=== PATIENT | female | born 1980 | race Caucasian/White ===

== ENCOUNTER 2021-09-10 13:09 | Emergency (ER) | payer SELFPAY ==
[~2021-09-10] VITALS: Ht 170.2 cm; Wt 82.0 kg
[2021-09-10] MEDS ORDERED: SODIUM CHLORIDE 0.9% 1,000 ML IV ONE (13:30)
[2021-09-10 13:47] LABS: BASOPHILS % 0.5 % (0.0-2.0); EOSINOPHILS % 0.8 % (0.0-5.0); HEMOGLOBIN. 9.3 g/dL (12.0-16.0); LYMPHOCYTES % 19.9 % (20.0-50.0); MEAN CORPUSCULAR VOLUME 57.9 fL (81.0-99.0); MONOCYTES % 11.4 % (2.0-8.0); NEUTROPHILS % 67.4 % (40.0-76.0); RED BLOOD CELL COUNT 5.17 mill/uL (4.2-5.4); RED CELL DISTRIBUTION WIDTH 31.5 % (11.6-14.6)
[2021-09-10 13:51] LABS: CHLORIDE 106 mEq/L (98-107)
[2021-09-10 13:54] LABS: PROTHROMBIN TIME 10.6 sec (9.6-11.0)
[2021-09-10 14:18] LABS: B-HCG QUANTITATIVE 113979 mIU/mL (<3)
[2021-09-10 14:30] LABS: PLATELET ESTIMATE NORMAL
[2021-09-10 14:31] LABS: MEAN PLATELET VOLUME 10.2 fl (7.4-10.4)
[2021-09-10 14:32] LABS: PLATELET 130 x1000/uL (130-400)
[2021-09-10] MEDS ORDERED: ACETAMINOPHEN 325MG TABLET PO ONE (14:45)
[2021-09-10 16:31] LABS: CLARITY URINE CLOUDY (CLEAR); COLOR URINE RED (YELLOW); KETONES URINE 2+ (NEGATIVE); LEUKOCYTE ESTERASE URINE TRACE (NEGATIVE); NITRITE URINE NEGATIVE (NEGATIVE); OCCULT BLOOD URINE 3+ (NEGATIVE); PH URINE 7.5 (4.5-8.0); PROTEIN URINE 3+ (NEGATIVE); SPECIFIC GRAVITY URINE 1.013 (1.005-1.030); UROBILINOGEN URINE 0.2 E.U./dL (0.2-1.0)
[2021-09-10] MEDS ORDERED: NITROFURANTOIN 100MG M/M CAPSULE PO ONE (17:15)
[2021-09-10] MEDS ORDERED: NITR-87 MT (18:40)
[2021-09-10 20:12] VITALS: BP 123/61
== END 2021-09-10 20:13 | disposition home or self-care (01) ==
LOC: ER 13:09
DX: O20.0 Threatened abortion (principal); O23.41 Unspecified infection of urinary tract in pregnancy, first trimester; N39.0 Urinary tract infection, site not specified; Z3A.12 12 weeks gestation of pregnancy; Z88.0 Allergy status to penicillin
CPT/HCPCS: 36415; 76801; 76817; 80053; 81003; 81025; 84702; 85025; 85610; 86850; 86900; 86901; 87086; 96360; 99284; J7030